=== PATIENT | male | born 1980 | race Caucasian/White ===

== ENCOUNTER 2020-09-08 14:35 | Emergency (ER) | payer OTHER ==
[2020-09-08 17:57] LABS: BASOPHIL 1.2 % (0-2); EOSINOPHIL 4.5 % (0-5); HCT 44.8 % (42.0-52.0); HGB 14.7 g/dl (13.2-18.0); LYMPHOCYTE 39.4 % (15-48); MCH 31.9 pg (25.0-31.0); MCHC 32.8 g/dL (32.0-36.0); MCV 97.2 fL (78.0-100.0); MONOCYTE 8.3 % (0-12); MPV 9.9 fL (6.0-9.5); NEUTROPHIL 46.2 % (41-80); NRBC 0; PLT 226 K/uL (150-400); RBC 4.61 M/uL (4.70-6.00); RDW 12.8 % (11.5-14.0)
[2020-09-08 18:12] LABS: BILIRUBIN - TOTAL 0.2 mg/dL (0.2-1.0); BUN/CREAT RATIO (CALC) 15.5 RATIO; CREATININE 0.97 mg/dL (0.67-1.17); GLOBULIN (CALCULATION) 3.3 g/dL; TOTAL PROTEIN 7.3 g/dL (6.4-8.2)
[2020-09-08 18:29] LABS: BILIRUBIN NEGATIVE (NEGATIVE); BLOOD NEGATIVE Ery/uL (NEGATIVE); CLARITY CLEAR (CLEAR); COLOR YELLOW (YELLOW); GLUCOSE (U) NORMAL (NORMAL); LEUKOCYTES NEGATIVE Leu/uL (NEGATIVE); NITRITE NEGATIVE (NEGATIVE); PROTEIN NEGATIVE (NEGATIVE); UROBILINOGEN 0.2 mg/dL (0.2-1.0)
[2020-09-08 18:32] LABS: AMPHETAMINES NEGATIVE (NEGATIVE); BARBITURATES NEGATIVE (NEGATIVE); ECSTASY (MDMA) NEGATIVE (NEGATIVE); MARIJUANA (THC) NEGATIVE (NEGATIVE); METHADONE NEGATIVE (NEGATIVE); OPIATES NEGATIVE (NEGATIVE); OXYCODONE NEGATIVE (NEGATIVE)
[2020-09-08] MEDS ORDERED: NORVASC5 MG PO (20:50)
[2020-09-08] MEDS ORDERED: LISINOPRIL 20MG20 MG PO (20:50)
== END 2020-09-08 21:15 | disposition home or self-care (01) ==
LOC: FER 14:35
PROVIDERS: Nurse Practitioner Family
DX: I10 Essential (primary) hypertension (principal); R06.02 Shortness of breath; R11.2 Nausea with vomiting, unspecified; R07.9 Chest pain, unspecified; F17.210 Nicotine dependence, cigarettes, uncomplicated; Z88.0 Allergy status to penicillin
CPT/HCPCS: 36415; 71046; 80053; 80305; 81003; 84484; 85025; 93005